=== PATIENT | female | born 1975 | race Two or more races ===

== ENCOUNTER 2019-03-25 07:33 | Outpatient (CLI) | payer OTHER | END 2019-03-25 07:34 | disposition home or self-care (01) | LOC: SONOGRAMA 07:33 | DX: E04.2 Nontoxic multinodular goiter (principal) ==

== ENCOUNTER 2020-06-14 10:57 | Emergency (ER) | payer OTHER ==
[~2020-06-14] VITALS: Ht 165.1 cm; Wt 95.7 kg
[2020-06-14] MEDS ORDERED: SINGULAIR 10MG10 MG (11:23)
[2020-06-14] MEDS ORDERED: COZAAR25 MG (11:23)
[2020-06-14] MEDS ORDERED: GLUMETZA500 MG (11:23)
== END 2020-06-14 15:06 | disposition home or self-care (01) ==
LOC: ER 10:57
DX: S00.83XA Contusion of other part of head, initial encounter (principal); W18.39XA Other fall on same level, initial encounter; Y93.89 Activity, other specified; Y92.098 Other place in other non-institutional residence as the place of occurrence of the external cause; Y99.8 Other external cause status

== ENCOUNTER 2020-07-17 10:02 | Outpatient (CLI) | payer OTHER ==
[~2020-07-17 10:02] MED LIST: COZAAR25 MG; GLUMETZA500 MG; SINGULAIR 10MG10 MG
== END 2020-07-17 10:12 | disposition home or self-care (01) ==
LOC: SONOGRAMA 10:02
PROVIDERS: ATTEND Pathology Anatomic Pathology & Clinical Pathology
DX: E04.1 Nontoxic single thyroid nodule (principal)

== ENCOUNTER 2020-07-20 20:09 | Emergency (ER) | payer OTHER ==
[~2020-07-20] VITALS: Ht 167.6 cm; Wt 93.0 kg
[2020-07-20] MEDS ORDERED: CRESTOR10 MG (20:18)
[2020-07-20] MEDS ORDERED: ANUSOL-HC25 MG RECTAL (22:03)
== END 2020-07-20 22:59 | disposition home or self-care (01) ==
LOC: ER 20:09
DX: K64.4 Residual hemorrhoidal skin tags (principal)

== ENCOUNTER 2020-11-05 00:18 | Emergency (ER) | payer OTHER ==
[~2020-11-05] VITALS: Ht 165.1 cm; Wt 95.3 kg
[~2020-11-05 00:18] MED LIST changes: +ANUSOL-HC25 MG RECTAL; +CRESTOR10 MG
[2020-11-05] MEDS ORDERED: METFORMIN HCL500 M4 PO (00:51)
== END 2020-11-05 14:35 | disposition home or self-care (01) ==
LOC: ER 00:18
DX: N20.1 Calculus of ureter (principal)

== ENCOUNTER 2020-11-10 10:10 | Day surgery (SDC) | payer OTHER ==
[~2020-11-10 10:10] MED LIST changes: +METFORMIN HCL500 M4 PO
== END 2020-11-10 16:20 | disposition home or self-care (01) ==
LOC: AMB-ENDOS 10:10
PROVIDERS: ATTEND Colon & Rectal Surgery
DX: K62.89 Other specified diseases of anus and rectum (principal); K64.1 Second degree hemorrhoids; Z20.822 Contact with and (suspected) exposure to COVID-19

== ENCOUNTER → 2020-11-24 08:00 | Outpatient (CLI) | payer OTHER | END | disposition home or self-care (01) | LOC: ADM 07:15 → LAB 08:00 → CIR.AMB 11-28 07:00 → EDSTATUS 11-29 07:15 → CIR.AMB 11-29 07:15 | PROVIDERS: ATTEND Surgery | DX: N20.1 Calculus of ureter (principal); Z01.810 Encounter for preprocedural cardiovascular examination; Z01.811 Encounter for preprocedural respiratory examination ==

== ENCOUNTER 2021-06-07 18:32 | Emergency (ER) | payer OTHER ==
[~2021-06-07] VITALS: Ht 165.1 cm; Wt 102.1 kg
[2021-06-07] MEDS ORDERED: ORPHENADRINE C100 MG PO (22:54)
== END 2021-06-07 22:59 | disposition home or self-care (01) ==
LOC: ER 18:32
DX: M76.61 Achilles tendinitis, right leg (principal)

== ENCOUNTER 2021-06-11 13:12 | Outpatient (CLI) | payer OTHER ==
[~2021-06-11 13:12] MED LIST changes: +ORPHENADRINE C100 MG PO
== END 2021-06-11 13:14 | disposition home or self-care (01) ==
LOC: MRI 13:12
PROVIDERS: ATTEND Orthopaedic Surgery
DX: S86.021A Laceration of right Achilles tendon, initial encounter (principal)
CPT/HCPCS: 73718

== ENCOUNTER 2024-11-30 09:44 | Outpatient (CLI) | payer OTHER | END 2024-11-30 09:46 | disposition home or self-care (01) | LOC: RAD 09:44 | PROVIDERS: ATTEND Orthopaedic Surgery | DX: M71.561 Other bursitis, not elsewhere classified, right knee (principal) ==